=== PATIENT | female | born 1990 | race Caucasian/White ===

== ENCOUNTER 2020-08-27 10:56 | Inpatient (IN) ==
[2020-08-27 11:58] LABS: ABS Basophils 0.1 10^3/ul (0-0.2); ABS Eosinophils 0.1 10^3/ul (0-0.6); ABS Lymphocytes 1.7 10^3/ul (1.0-4.8); ABS Monocytes 0.6 10^3/ul (0-0.8); ABS Neutrophils 8.3 10^3/ul (1.5-7.7); Hematocrit 40 % (35-47); Hemoglobin 14.3 g/dL (12.0-16.0); Lymphocyte % 15.7 %; Mean Corpuscular HGB Conc 36 g/dL (31-36); Mean Corpuscular Hemoglobin 34 pg (27-31); Mean Corpuscular Volume 95 fL (80-97); Mean Platelet Volume 8.2 fL (7.4-10.4); Platelet Count 335 10^3/uL (150-450); Red Blood Count 4.22 10^6 /uL (3.70-4.87); Red Cell Distribution Width 13 % (10-15); Urine Appearance Clear; Urine Bilirubin Negative (Negative); Urine Blood Negative (Negative); Urine Color Straw; Urine Glucose Negative (Negative); Urine Ketones Negative (Negative); Urine Nitrite Negative (Negative); Urine Protein Negative (Negative); Urine Specific Gravity 1.005 (1.010-1.030); Urine Urobilinogen Negative (Negative); White Blood Count 10.8 10^3/uL (3.5-10.8)
[2020-08-27 12:07] LABS: ALT 34 U/L (7-52); Albumin 3.8 g/dL (3.2-5.2); Albumin/Globulin Ratio 1.1 (1-3); Alkaline Phosphatase 133 U/L (34-104); BUN/Creatinine Ratio 18.8 (8-20); Blood Urea Nitrogen 19 mg/dL (6-24); CO2 Carbon Dioxide 21 mmol/L (22-32); Calcium 8.9 mg/dL (8.6-10.3); Chloride 103 mmol/L (101-111); EGFR African American 77.4 (>60); EGFR Non-African American 63.9 (>60); Globulin 3.5 g/dL (2-4); Glucose 75 mg/dL (70-100); Sodium 135 mmol/L (135-145); Total Protein 7.3 g/dL (6.4-8.9); Uric Acid 7.5 mg/dL (2.3-6.6)
[2020-08-27 12:21] LABS: Urine Benzodiazepine Screen None Detected (None Detect); Urine Cannabinoids Screen None Detected (None Detect); Urine Opiates Screen None Detected (None Detect)
[2020-08-27 13:23] LABS: Anion Gap 11 mmol/L (2-11)
[2020-08-27 15:04] LABS: Potassium Redraw 3.8 mmol/L (3.5-5.0)
[2020-08-27] MEDS: Oxytocin in LR 20 UNITS/1,000 ML BAG IVPB SCH (17:57)
[2020-08-27] MEDS: Lactated Ringers 1000 ml BAG 1,000 ML IV SCH (17:57)
[2020-08-28] MEDS: Oxytocin in LR 20 UNITS/1,000 ML BAG IVPB SCH (17:11)
[2020-08-28] MEDS: Lactated Ringers 1000 ml BAG 1,000 ML IV SCH (17:11)
[2020-08-28] MEDS ORDERED: OBEPIDURAL 250 ML EPIDURAL ONE (17:20)
[2020-08-28 17:50] LABS: Hematocrit 44 % (35-47); Mean Corpuscular HGB Conc 35 g/dL (31-36); Mean Corpuscular Hemoglobin 33 pg (27-31); Mean Corpuscular Volume 97 fL (80-97); Platelet Count 315 10^3/uL (150-450); Red Blood Count 4.51 10^6 /uL (3.70-4.87); Red Cell Distribution Width 13 % (10-15); White Blood Count 16.1 10^3/uL (3.5-10.8)
[2020-08-28] MEDS ORDERED: Sodium Citrate/Citric Acid LIQ 15 ML UDC PO PRN (18:34)
[2020-08-28] MEDS ORDERED: Phenylephrine 40 mcg/mL 10mL (400mcg) SYRINGE IV PUSH PRN ×2 (18:34)
[2020-08-28] MEDS ORDERED: Lactated Ringers 1000 ml BAG 1,000 ML IV ONE (18:34)
[2020-08-28] MEDS ORDERED: Lactated Ringers 1000 ml BAG 1,000 ML IV SCH (19:00)
[2020-08-28] MEDS ORDERED: OBEPIDURAL 250 ML EPIDURAL SCH (19:00)
[2020-08-29] MEDS: Lactated Ringers 1000 ml BAG 1,000 ML IV SCH (00:58)
[2020-08-29] MEDS ORDERED: ceFOXitin 2 GM IVPREMIX 2 GM/50 ML BAG ONE (15:27)
[2020-08-29] MEDS ORDERED: fentaNYL 100 mcg/2 ml 50 MCG/ML VIAL ONE ×2 (15:56→16:59)
[2020-08-29] MEDS ORDERED: Chloroprocaine 3% 20 ml VIAL ONE ×2 (15:56→16:35)
[2020-08-29 16:02] LABS: ABS Lymphocytes 0.9 10^3/ul (1.0-4.8); ABS Monocytes 0.8 10^3/ul (0-0.8); ABS Neutrophils 18.1 10^3/ul (1.5-7.7); Eosinophil % 0.1 %; Hematocrit 43 % (35-47); Hemoglobin 14.1 g/dL (12.0-16.0); Lymphocyte % 4.3 %; Mean Corpuscular HGB Conc 33 g/dL (31-36); Mean Corpuscular Hemoglobin 32 pg (27-31); Mean Corpuscular Volume 100 fL (80-97); Platelet Count 220 10^3/uL (150-450); Red Blood Count 4.36 10^6 /uL (3.70-4.87); Red Cell Distribution Width 12 % (10-15); White Blood Count 19.8 10^3/uL (3.5-10.8)
[2020-08-29 16:06] LABS: Albumin 3.3 g/dL (3.2-5.2); Albumin/Globulin Ratio 1.2 (1-3); BUN/Creatinine Ratio 14.2 (8-20); Calcium 8.3 mg/dL (8.6-10.3); EGFR African American 73.2 (>60); EGFR Non-African American 60.5 (>60); Globulin 2.8 g/dL (2-4); Potassium 3.8 mmol/L (3.5-5.0); Total Bilirubin 0.6 mg/dL (0.2-1.0); Total Protein 6.1 g/dL (6.4-8.9)
[2020-08-29] MEDS ORDERED: Ondansetron 4 mg VIAL 2 MG/ML 2 ml VIAL ONE (16:06)
[2020-08-29] MEDS ORDERED: Oxytocin 10 UNITS/ML 1 ML VIAL ONE (16:06)
[2020-08-29] MEDS ORDERED: Dexamethasone IV 4 MG/ML VIAL 1 ml VIAL ONE (16:06)
[2020-08-29] MEDS ORDERED: Morphine PF AMP (0.5MG/ML) 5 MG/10 ML AMP ONE (16:47)
[2020-08-29] MEDS ORDERED: DiMENhydriNATE IV 50 mg/ml 1 ml VIAL IV PUSH PRN ×2 (16:52→16:57)
[2020-08-29] MEDS ORDERED: fentaNYL 100 mcg/2 ml 50 MCG/ML VIAL IV PRN (16:52)
[2020-08-29] MEDS ORDERED: Acetaminophen IV 1 GM/100ML 1,000 MG/100 ML VIAL IVPB ONE (16:52)
[2020-08-29] MEDS ORDERED: Naloxone 0.4 mg VIAL 0.4 mg/ml 1 ml VIAL IV PRN ×2 (16:52→16:57)
[2020-08-29] MEDS ORDERED: Ondansetron 4 mg VIAL 2 MG/ML 2 ml VIAL IV PRN (16:57)
[2020-08-29] MEDS ORDERED: Glycerin ADULT 2.4 gm SUPP PR PRN (17:20)
[2020-08-29] MEDS ORDERED: Dibucaine 1% OINT 28.35 GM TUBE PR PRN (17:20)
[2020-08-29] MEDS ORDERED: Witch Hazel PAD JAR TOPICAL PRN (17:20)
[2020-08-29] MEDS ORDERED: Oxytocin in LR 20 UNITS/1,000 ML BAG IVPB SCH (18:00)
[2020-08-29 22:31] LABS: Urine Appearance Clear; Urine Bilirubin Negative (Negative); Urine Blood Negative (Negative); Urine Color Straw; Urine Glucose Negative (Negative); Urine Ketones Negative (Negative); Urine Nitrite Negative (Negative); Urine Protein Negative (Negative); Urine Specific Gravity 1.005 (1.010-1.030); Urine Urobilinogen Negative (Negative)
[2020-08-30 06:45] LABS: Hematocrit 36 % (35-47); Hemoglobin 12.7 g/dL (12.0-16.0); Mean Corpuscular HGB Conc 35 g/dL (31-36); Mean Corpuscular Hemoglobin 34 pg (27-31); Mean Corpuscular Volume 97 fL (80-97); Mean Platelet Volume 7.7 fL (7.4-10.4); Platelet Count 261 10^3/uL (150-450); Red Blood Count 3.74 10^6 /uL (3.70-4.87); Red Cell Distribution Width 13 % (10-15); White Blood Count 31.3 10^3/uL (3.5-10.8)
[2020-08-30 06:57] LABS: ABS Lymphocytes 1.2 10^3/ul (1.0-4.8); ABS Neutrophils 29.1 10^3/ul (1.5-7.7); Lymphocyte % 3.7 %
[2020-08-31 08:01] VITALS: BP 140/88
== END 2020-08-31 13:38 | disposition home or self-care (01) | DRG 540 ==
LOC: MCHOBOUT 10:56 → MCHOB 12:03
PROVIDERS: ADMIT Midwife; ATTEND Obstetrics & Gynecology

== ENCOUNTER 2023-11-06 05:32 | Inpatient (IN) ==
[2023-11-06] MEDS ORDERED: ceFOXitin 2 GM IVPREMIX 2 GM/50 ML BAG IVPB ONE (05:52)
[2023-11-06] MEDS ORDERED: Lactated Ringers 1000 ml BAG 1,000 ML IV ONE (05:52)
[2023-11-06] MEDS ORDERED: Sodium Citrate/Citric Acid LIQ 15 ML UDC PO ONE (05:52)
[2023-11-06] MEDS ORDERED: Buffered Lidocaine 1% SYRIN 1 ml INTRADERM ONE (05:52)
[2023-11-06] MEDS ORDERED: Lactated Ringers 1000 ml BAG 1,000 ML IV SCH ×2 (06:00→10:00)
[2023-11-06 07:00] LABS: ABS Basophils 0.1 10^3/uL (0.0-0.1); ABS Eosinophils 0.1 10^3/uL (0.0-0.5); ABS Monocytes 0.7 10^3/uL (0.0-0.9); ABS Neutrophils 6.1 10^3/uL (1.5-7.6); ABS Nucleated RBC 0.02 10^3/ul; Eosinophil % 1.6 %; Hematocrit 39.8 % (35-45); Hemoglobin 13.9 g/dL (11.5-14.3); Mean Corpuscular Hemoglobin 33.1 pg (27-33); Mean Corpuscular Hgb Conc 34.9 g/dL (31-36); Mean Corpuscular Volume 94.7 fL (80-97); Mean Platelet Volume 7.9 fL (7.5-11.2); Nucleated Red Blood Cells % 0.2 %/100WBC (0.0-0.8); Platelet Count 320 10^3/uL (150-450); Red Cell Distribution Width 12.7 % (12-17); White Blood Count 8.9 10^3/uL (3.8-11.8)
[2023-11-06] MEDS ORDERED: Oxytocin 10 UNITS/ML 1 ML VIAL ONE (07:07)
[2023-11-06] MEDS ORDERED: Ondansetron 4 mg VIAL 2 MG/ML 2 ml VIAL ONE (07:07)
[2023-11-06] MEDS ORDERED: Dexamethasone IV 4 MG/ML VIAL 1 ml VIAL ONE (07:07)
[2023-11-06] MEDS ORDERED: Morphine PF AMP (0.5MG/ML) 5 MG/10 ML AMP ONE (07:50)
[2023-11-06] MEDS ORDERED: Naloxone 0.4 mg VIAL 0.4 mg/ml 1 ml VIAL IV PUSH PRN (08:55)
[2023-11-06] MEDS ORDERED: Acetaminophen IV 1 GM/100ML 1,000 MG/100 ML BAG IV PRN (08:55)
[2023-11-06] MEDS ORDERED: Metoclopramide 5 MG/ML VIAL (10 mg) IV PRN (08:55)
[2023-11-06] MEDS ORDERED: Ondansetron 4 mg VIAL 2 MG/ML 2 ml VIAL IV PRN (08:55)
[2023-11-06 09:20] LABS: Urine Appearance Clear; Urine Bilirubin Negative (Negative); Urine Blood Negative (Negative); Urine Color Straw; Urine Glucose Negative (Negative); Urine Ketones Negative (Negative); Urine Nitrite Negative (Negative); Urine Protein Negative (Negative); Urine Specific Gravity 1.004 (1.002-1.030); Urine Urobilinogen Negative (Negative)
[2023-11-06] MEDS ORDERED: Witch Hazel PAD JAR TOPICAL PRN (09:25)
[2023-11-06] MEDS ORDERED: Oxytocin in LR 20,000 MILLI.UNIT/1,000 ML BAG IV SCH (09:25)
[2023-11-06] MEDS ORDERED: Dibucaine 1% OINT 28.35 GM TUBE PR PRN (09:25)
[2023-11-06] MEDS ORDERED: Glycerin ADULT 2.4 gm SUPP PR PRN (09:25)
[2023-11-06 09:38] LABS: Urine Benzodiazepine Screen None Detected (None Detect); Urine Cannabinoids Screen None Detected (None Detect); Urine Opiates Screen None Detected (None Detect)
[2023-11-07 07:51] LABS: ABS Basophils 0.1 10^3/uL (0.0-0.1); ABS Eosinophils 0.1 10^3/uL (0.0-0.5); ABS Lymphocytes 1.6 10^3/uL (1.0-4.8); ABS Monocytes 0.7 10^3/uL (0.0-0.9); ABS Neutrophils 12.7 10^3/uL (1.5-7.6); Eosinophil % 0.4 %; Hematocrit 39.2 % (35-45); Hemoglobin 13.6 g/dL (11.5-14.3); Lymphocyte % 10.4 %; Mean Corpuscular Hemoglobin 32.9 pg (27-33); Mean Corpuscular Hgb Conc 34.6 g/dL (31-36); Mean Platelet Volume 7.6 fL (7.5-11.2); Platelet Count 294 10^3/uL (150-450); Red Blood Count 4.13 10^6/uL (3.63-4.92); Red Cell Distribution Width 12.7 % (12-17); White Blood Count 15.1 10^3/uL (3.8-11.8)
[2023-11-08 07:55] VITALS: BP 129/84
== END 2023-11-08 11:40 | disposition home or self-care (01) | DRG 540 ==
LOC: MCHOB 05:32
PROVIDERS: ADMIT Obstetrics & Gynecology; ATTEND Obstetrics & Gynecology